=== PATIENT | female | born 1995 | race Hispanic/Latino ===

== ENCOUNTER 2019-07-10 12:09 | Outpatient (CLI) | payer MEDICAID ==
[2019-07-10 12:34] VITALS: BP 110/66
--- NOTE | 2019-07-10 14:46 | Ultrasound Report ---
Limited OB Ultrasound Biophysical profile HISTORY: baby measuring too small. Clinical age reported at 35 weeks and 2 days. TECHNIQUE: Grayscale and color Doppler imaging performed. COMPARISON: None FINDINGS: Limited OB ultrasound: There is a single intrauterine gestation which is cephalic in presentation. He art rate is 154 bpm. JUSTIN is 12. Gestational age not estimated on this exam. Biophysical profile: The fetus received a score of 2 out of 2 for breathing movement, movement, poste rior/tone, and JUSTIN. Total score was 8 out of 8. IMPRESSION: 1. Single viable intrauterine gestation as above. 2. Normal BPP. Signer Name: Ryan Nunes MD Signed: 07/10/2019 2:42 PM Workstation Name: [id number]
== END 2019-07-10 16:19 | disposition home or self-care (01) ==
LOC: TRG 12:09
PROVIDERS: ATTEND Obstetrics & Gynecology
DX: O36.5930 Maternal care for other known or suspected poor fetal growth, third trimester, not applicable or unspecified (principal); Z3A.35 35 weeks gestation of pregnancy; Z87.891 Personal history of nicotine dependence
CPT/HCPCS: 59025; 76815; 76819

== ENCOUNTER 2019-08-12 05:37 | Inpatient (IN) | payer MEDICAID ==
[2019-08-12] MEDS ORDERED: LACTATED RINGERS 1,000 ML ONE ×2 (06:10→07:02)
[2019-08-12] MEDS ORDERED: OXYTOCIN 20 UNIT/1000ML DRIP 40,000 MILLIUNITS/2,000 ML BAG IV ONE (06:17)
[2019-08-12] MEDS ORDERED: ceFAZolin/Water 2 GM/20 ML 2 GM/20 ML SYRINGE IV ONE (06:18)
[2019-08-12] MEDS ORDERED: FAMOTIDINE 20 MG/2 ML INJ IV ONE (06:18)
[2019-08-12] MEDS ORDERED: BICITRA ORAL LIQD 30ML ONE (06:18)
[2019-08-12] MEDS ORDERED: METOCLOPRAMIDE 10 MG/2 ML INJ ONE (06:18)
[2019-08-12] MEDS ORDERED: diphenhydrAMINE 50 MG/ML VIAL IV PRN (06:47)
[2019-08-12] MEDS ORDERED: HYDROmorphone 1 MG/1 ML INJ IV PRN ×2 (06:47)
[2019-08-12] MEDS ORDERED: ONDANSETRON 4 MG/2 ML INJ IV PRN (06:47)
--- NOTE | 2019-08-12 06:49 | Anesthesia Day of Surgery ---
Anesthesia Day of Surgery - Day of Surgery Patient Examined: Yes Patient H&P Reviewed: Yes Patient is NPO: Yes Beta Blockers: No Cardiac Clearance: No Pulmonary Clearance: No Matias's Test: N/A
--- NOTE | 2019-08-12 06:50 | Anesthesia Consultation ---
Anesthesia Consult and Med Hx Date of service: 08/12/19 - Airway Anesthetic Teeth Evaluation: Good ROM Head & Neck: Adequate Mental/Hyoid Distance: Adequate Mallampati Class: Class II Intubation Access Assessment: Probably Good - Pulmonary Exam CTA: Yes - Cardiac Exam Cardiac Exam: RRR - Pre-Operative Health Status ASA Pre-Surgery Classification: ASA2 Proposed Anesthetic Plan: Spinal - Pulmonary Hx Smoking: No Hx Asthma: No Hx Respiratory Symptoms: No SOB: No COPD: No Home Oxygen Therapy: No Hx Pneumonia: No Hx Sleep Apnea: No - Cardiovascular System Hx Hypertension: No Hx Coronary Artery Disease: No Hx Heart Attack/AMI: No Hx Angina: No Hx Percutaneous Transluminal Coronary Angioplasty (PTCA): No Hx Cardia Arrhythmia: No Hx Pacemaker: No Hx Internal Defibrillator: No Hx Valvular Heart Disease: No Hx Heart Murmur: No Hx Peripheral Vascular Disease: No - Central Nervous System Hx Neuromuscular Disorder: No Hx Seizures: No CVA: No Hx Back Pain: No Hx Psychiatric Problems: No - Gastrointestinal Hx Ulcer: No Hx Gastroesophageal Reflux Disease: Yes - Endocrine Hx Renal Disease: No Hx End Stage Renal Disease: No Hx Cirrhosis: No Hx Liver Disease: No Hx Insulin Dependent Diabetes: No Hx Non-Insulin Dependent Diabetes: No Hx Thyroid Disease: No Hx Hypothyroidism: No Hx Hyperthyroidism: No - Hematic Hx Anemia: No Hx Sickle Cell Disease: No - Other Systems Hx Alcohol Use: No Hx Substance Use: No Hx Cancer: No Hx Obesity: No
[2019-08-12 06:58] LABS: Hemoglobin 14.1 gm/dl (10.1-14.3); Mean Corpuscular HGB Conc 34 % (30-34); Mean Corpuscular Volume 92 fl (79-97); Platelet Count 428 K/mm3 (140-440); Red Blood Count 4.55 M/mm3 (3.65-5.03); Red Cell Distribution Width 13.9 % (13.2-15.2)
[2019-08-12] MEDS ORDERED: ONDANSETRON 4 MG/2 ML INJ ONE (07:16)
[2019-08-12] MEDS ORDERED: KETOROLAC 30 MG/1 ML INJ ONE (07:16)
[2019-08-12] MEDS ORDERED: DEXMEDETOMIDINE 200 MCG/2 ML VIAL IV ONE (07:16)
--- NOTE | 2019-08-12 07:47 | History and Physical Report ---
History of Present Illness Date of examination: 08/12/19 Date of admission: 08/12/19 05:37 Chief complaint: Repeat C Section History of present illness: Pt is a 23yo WF EDC 08/12/19; EGA 40 0/7 weeks presents for a Repeat C Section. She received late care at [facility] since 25 weeks and course has been unremarkable except for a previous C Section. records are available and GBS is negative. 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 HAND History: abnormal PAP smear Family/Genetic History: none Social history: no significant social history, single - Obstetrical History Expected Date of Delivery: 08/12/19 Actual Gestation: 40 Week(s) 0 Day(s) : 3 Medications and Allergies Allergies Allergy/AdvReac Type Severity Reaction Status Date / Time No Known Allergies Allergy Verified 08/12/19 06:09 Active Meds: Active Medications Diphenhydramine HCl (Benadryl) 12.5 mg IV Q2H PRN PRN Reason: Itching Hydromorphone HCl (Dilaudid) 0.5 mg IV Q5M PRN PRN Reason: BREAK Stop: 08/12/19 23:59 Hydromorphone HCl (Dilaudid) 0.5 mg IV Q4H PRN PRN Reason: breakthrough pain > 7/10 Ondansetron HCl (Zofran) 4 mg IV Q8H PRN PRN Reason: Nausea And Vomiting Sodium Chloride (Sodium Chloride Flush Syringe 10 Ml) 10 ml IV PRN PRN PRN Reason: LINE FLUSH Review of Systems All systems: negative - Vital Signs Vital signs: Vital Signs Temp Pulse Resp BP Pulse Ox 98.2 F 68 16 112/69 100 08/12/19 06:08 08/12/19 06:08 08/12/19 06:08 08/12/19 06:08 08/12/19 06:08 Temp Pulse Resp BP Pulse Ox 98.2 F 76 16 112/69 98 08/12/19 06:08 08/12/19 07:24 08/12/19 06:08 08/12/19 06:08 08/12/19 07:24 - Physical Exam Breasts: Positive: deferred Cardiovascular: Regular rate Lungs: Positive: Clear to auscultation Abdomen: Positive: normal appearance Genitourinary (Female): Positive: normal external genitalia Vagina: Positive: normal moisture Uterus: Positive: enlarged Extremities: Positive: normal - Obstetrical FHR: category 1 Uterine Contraction Monitor Mode: External Results Result Diagrams: 08/12/19 06:00 Abnormal lab results 08/12/19 Range/Units 06:00 WBC 15.3 H (4.5-11.0) K/mm3 All other labs normal. Assessment and Plan - Patient Problems (1) 40 weeks gestation of Onset Date: 08/12/19 Current Visit: Yes Status: Acute Plan to address problem: A: IUP @ 40 0/7 weeks Previous C Section P: Admit to L&D for Repeat C Section. (2) Previous section Onset Date: 08/12/19 Current Visit: Yes Status: Acute
[2019-08-12] MEDS ORDERED: ePHEDrine SULFATE 50 MG/1 ML INJ ONE (07:48)
[2019-08-12] MEDS ORDERED: LACTATED RINGERS 1,000 ML IV SCH (08:00)
[2019-08-12] MEDS ORDERED: OXYTOCIN 20 UNIT/1000ML DRIP 20 UNITS/1,000 ML BAG IV SCH ×2 (08:00→09:00)
[2019-08-12] MEDS ORDERED: WATER FOR IRRIG STERILE 1,500 ML BOTTLE IR ONE (08:05)
[2019-08-12] MEDS ORDERED: SODIUM CHLORIDE 0.9% IRR 1,500 ML BOTTLE IR ONE (08:05)
[2019-08-12] MEDS ORDERED: FAMOTIDINE 20 MG/2 ML INJ IV NR (08:30)
[2019-08-12] MEDS ORDERED: BICITRA ORAL LIQD 30ML PO NR (08:30)
[2019-08-12] MEDS ORDERED: METOCLOPRAMIDE 10 MG/2 ML INJ IV NR (08:30)
[2019-08-12] MEDS ORDERED: ceFAZolin/Water 2 GM/20 ML 2 GM/20 ML SYRINGE IV NR (08:30)
--- NOTE | 2019-08-12 08:40 | Operative Report ---
Operative Report Operative Report: Date of procedure: 08/12/2019 Pre-operative diagnosis: 1. Intrauterine at 40 0/7 weeks 2. Prev ious C Section Post-operative diagnosis: Same Procedure name(s): Repeat low transverse section Surgeon: Joseph Chase MD Photoengraving Proofer Apprentice: None Anesthesia: Spinal anesthesia by Disha Griffith CRNA EBL: 800 mL's Findings: A 3404 g female Apgars 8 at 1 minute and 9 at 5 minutes. Clear amniotic fluid. Normal uterus with normal tubes and ovaries bilaterally. Procedure: After the patient was prepped and draped in usual sterile fashion, and after satisfactory level of epidural anesthesia was obtained, the skin knife was used to make a transverse skin incision through the previous skin scar. The incision was excised down to layer of the fascia, which was nicked in the midline and extended laterally using the Bovie cautery. The rectus muscles were dissected off the rectus fascia both superiorly and inferiorly. The rectus bellies in the midline, and the peritoneum was entered under direct visualization. The peritoneal incision was extended superiorly and inferiorly. The lower uterine adhesions were taken down using both sharp and blunt dissection. A bladder flap was created and the bladder blade was then placed. The uterus was scored in a curvilinear linear fashion, entered in the midline revealing clear amniotic fluid. The infant's head was delivered onto the surgical field with the aid of a vacuum, and the oropharynx and nasopharynx were bulb suctioned. The rest of the infant's body was delivered, cord was doubly clamped and cut and the infant was handed to the waiting respiratory team. Cord blood was then obtained. The placenta was manually removed from the uterus, and the uterus removed from its normal anatomical position. After gentle uterine lavage, the incision was inspected and found to be without extensions. It was then closed in 2 layers using 0 Vicryl suture in a running interlocking fashion, the second layer imbricating the first. After good hemostasis was achieved, copious amounts or irrigation was performed, and the gutters were suctioned free of blood and blood clots. The Tisseel sealant was sprayed across the uterine incision, and excellent hemostasis was assured. The uterus was then returned to its normal anatomical position, and after excellent hemostasis assured, the peritoneum was re-approximated using 3-0 Vicryl suture in a running interlocking fashion, and then the rectus muscles were re-approximated using 3-0 Vicryl suture in a [id number] configuration. The fascia was then re-approximated using 0 Vicryl suture in running interlocking fashion. The subcutaneous layer was made hemostatic using Bovie cautery, and the skin edges re-approximated using 4-0 Vicryl suture in a sub-cuticular fashion. Patient tolerated the procedure well was transported to recovery in stable condition.
[2019-08-12] MEDS ORDERED: WITCH HAZEL/ GLYCERIN PAD TP PRN (08:41)
[2019-08-12] MEDS ORDERED: NALOXONE 0.4 MG/1 ML INJ IV PRN (08:41)
[2019-08-12] MEDS ORDERED: SIMETHICONE 80 MG CHEW TAB PO PRN (08:41)
[2019-08-12] MEDS ORDERED: HYDROcodone/ACETAMINOPHEN 5-325 MG TAB PO PRN (08:41)
[2019-08-12] MEDS ORDERED: LANOLIN/ZINC/DIMETHICONE (LANSINOH) 7 GM TP PRN (08:41)
[2019-08-12] MEDS ORDERED: KETOROLAC 30 MG/1 ML INJ IV PRN (08:41)
[2019-08-12] MEDS ORDERED: D5W/LACTATED RINGERS 1,000 ML IV SCH ×2 (09:00→20:00)
--- NOTE | 2019-08-12 09:15 | Post Anesthesia Evaluation ---
- Post Anesthesia Evaluation Patient Participated: Yes Airway Patent: Yes Stable Respiratory Function: Yes Nausea/Vomiting: No Temp > 96.8F: Yes Pain Manageable: Yes Adequeate Hydration: Yes Anesthesia Complications: No Block Receding Appropriately: Yes Patient on Ventilator: No
[2019-08-12] MEDS: FERROUS SULFATE 325 MG TAB PO SCH (12:38)
[2019-08-12] MEDS: oxyCODONE /ACETAMINOPHEN 5-325MG TAB PO PRN ×2 (12:38→20:04)
[2019-08-12] MEDS: PRENATAL VIT27-FE FUMARATE-FOLIC ACID VIT TAB PO SCH (12:39)
[2019-08-12] MEDS: IBUPROFEN 800 MG TAB PO PRN ×2 (15:26→23:25)
[2019-08-12] MEDS: ceFAZolin/NS 1 GM/50 ML 1 GM/50 ML BAG IV SCH ×2 (15:27→23:30)
[2019-08-12 19:43] LABS: Hematocrit 25.2 % (30.3-42.9); Hemoglobin 7.8 gm/dl (10.1-14.3)
[2019-08-12] MEDS ORDERED: MAGNESIUM HYDROXIDE (MOM) ORAL LIQD UDC PO PRN (22:00)
[2019-08-13] MEDS: oxyCODONE /ACETAMINOPHEN 5-325MG TAB PO PRN ×4 (05:14→23:35)
--- NOTE | 2019-08-13 09:48 | Progress Note ---
Assessment and Plan - Patient Problems (1) 40 weeks gestation of Onset Date: 08/12/19 Current Visit: Yes Status: Resolved (2) Previous section Onset Date: 08/12/19 Current Visit: Yes Status: Resolved (3) Status post Onset Date: 08/13/19 Current Visit: Yes Status: Resolved Plan to address problem: A: S/P Repeat C Section - POD #1 Doing well Acute blood loss anemia - stable P: Continue RPOC Anticipate discharge in 24-48hrs (4) Acute blood loss anemia Onset Date: 08/13/19 Current Visit: Yes Status: Resolved Subjective - Subjective Date of service: 08/13/19 Principal diagnosis: s/p Repeat C Section - POD #1 Interval history: Pt is feeling well without complaints. Bleeding improved. Patient reports: appetite normal, voiding normally, pain well controlled, ambulating normally, no dizzy ambulation, no flatus, no nauseated [place]: doing well, nursing well Objective - Vital Signs Latest vital signs: Vital Signs Temp Pulse Resp BP BP Pulse Ox 08/13/19 07:58 97.8 F 65 16 110/69 100 08/13/19 05:14 20 08/13/19 05:08 98.7 F 70 20 106/64 98 08/13/19 00:08 98.3 F 70 20 105/64 99 08/12/19 23:25 20 08/12/19 20:24 97.8 F 68 18 105/64 98 08/12/19 20:04 20 08/12/19 16:00 98.6 F 80 18 99/56 08/12/19 10:00 59 L 11 L 123/74 100 Intake and Output 08/12/19 08/13/19 08/13/19 22:59 06:59 14:59 Intake Total 410 360 Output Total 2600 2600 Balance -2190 -2240 Intake: IV 50 ANCEF/NS 1 GM/50 ML 1 gm 50 In 50 ml @ 100 mls/hr IV Q8H [facility] Rx#:[id number] Oral 360 Intake, Free Water 360 Output: Urine 2600 2600 Indwelling Catheter 700 2600 Void 1900 Other: Total, Intake Amount 120 Total, Output Amount 700 800 # Voids Void 1 - Exam Abdomen: Present: normal appearance, soft Uterus: Present: normal, firm, fundal height below umbilicus Extremities: Present: normal Incision: Present: normal, dry, intact, dressed - Labs Labs: Abnormal lab results 08/12/19 Range/Units 19:28 Hgb 7.8 L D (10.1-14.3) gm/dl Hct 25.2 L D (30.3-42.9) % Laboratory Tests 08/12/19 08/12/19 08/12/19 06:00 06:00 06:00 WBC 15.3 H RBC 4.55 Hgb 14.1 Hct 42.0 MCV 92 MCH 31 MCHC 34 RDW 13.9 Plt Count 428 RPR Nonreactive Blood Type O POSITIVE Antibody Screen Negative 08/12/19 19:28 WBC RBC Hgb 7.8 L D Hct 25.2 L D MCV MCH MCHC RDW Plt Count RPR Blood Type Antibody Screen
[2019-08-13] MEDS: IBUPROFEN 800 MG TAB PO PRN ×2 (10:30→16:12)
[2019-08-13] MEDS: FERROUS SULFATE 325 MG TAB PO SCH (10:30)
[2019-08-13] MEDS: PRENATAL VIT27-FE FUMARATE-FOLIC ACID VIT TAB PO SCH (10:30)
[2019-08-13] MEDS ORDERED: TETANUS,DIPH,PERTUSS(ACELL) VACCINE 0.5 ML SYRINGE IM ONE (12:00)
[2019-08-13] MEDS ORDERED: MEASLES, MUMPS & RUBELLA 12,500 UNIT/0.5 ML VACCINE SUB-Q ONE (12:00)
[2019-08-14] MEDS: IBUPROFEN 800 MG TAB PO PRN ×2 (05:20→20:29)
--- NOTE | 2019-08-14 10:09 | Progress Note ---
Assessment and Plan - Patient Problems (1) 40 weeks gestation of Onset Date: 08/12/19 Current Visit: Yes Status: Resolved (2) Previous section Onset Date: 08/12/19 Current Visit: Yes Status: Resolved (3) Status post Onset Date: 08/13/19 Current Visit: Yes Status: Resolved Plan to address problem: A: S/P Repeat C Section - POD #2 Doing well Acute blood loss anemia - stable P: May go home tomorrow. (4) Acute blood loss anemia Onset Date: 08/13/19 Current Visit: Yes Status: Resolved Subjective - Subjective Date of service: 08/14/19 Principal diagnosis: s/p Repeat C Section - POD #2 Interval history: Pt is feeling well without complaints. She is tolerating a reg diet without nausea or vomiting, ambulating and voiding without difficulty. Patient reports: appetite normal, voiding normally, pain well controlled, ambulating normally, no dizzy ambulation, no flatus, no nauseated : doing well, nursing well Objective - Vital Signs Latest vital signs: Vital Signs Temp Pulse Resp BP BP Pulse Ox 08/14/19 05:20 18 08/14/19 00:00 98 F 61 18 116/60 08/13/19 23:35 20 08/13/19 16:28 97.9 F 68 16 105/67 97 Intake and Output 08/13/19 08/14/19 08/14/19 22:59 06:59 14:59 Intake Total 240 300 Balance 240 300 Intake: Oral 240 Intake, Free Water 300 Other: Total, Intake Amount 240 # Voids Void 1 1 - Exam Abdomen: Present: normal appearance, soft Uterus: Present: normal, firm, fundal height below umbilicus Extremities: Present: normal Incision: Present: normal, dry, intact
[2019-08-14] MEDS: FERROUS SULFATE 325 MG TAB PO SCH ×2 (10:10→10:12)
[2019-08-14] MEDS: PRENATAL VIT27-FE FUMARATE-FOLIC ACID VIT TAB PO SCH (10:12)
[2019-08-14] MEDS ORDERED: NEOMY 3.5 MG/BACIT 400 UNITS/POLY B 5000 UNITS OINT 15 GM TP ONE (11:01)
[2019-08-14] MEDS: oxyCODONE /ACETAMINOPHEN 5-325MG TAB PO PRN (14:25)
[2019-08-14] MEDS ORDERED: NEOMY 3.5 MG/BACIT 400 UNITS/POLY B 5000 UNITS/GM OINT PACKET TP SCH (20:00)
[2019-08-14] MEDS ORDERED: NEOMY 3.5 MG/BACIT 400 UNITS/POLY B 5000 UNITS OINT 15 GM TP SCH (22:30)
--- NOTE | 2019-08-15 09:49 | Discharge Summary ---
Providers - Providers Date of Admission: 08/12/19 05:37 Date of discharge: 08/15/19 Attending physician: ROSIO PETERSEN Primary care physician: ROSIO PETERSEN Hospitalization Reason for admission: section, IUP at term Delivery: Procedure: section, repeat low transverse Episiotomy: none Laceration: none Incision: normal, dry, intact Other procedures: none complications: none Discharge diagnosis: IUP at term delivered [place] baby: female Hospital course: Pt is a 23yo WF EDC 08/12/19; EGA 40 0/7 weeks who presented for a Repeat C Section. She received late care at [facility] since 25 weeks and course has been unremarkable except for a previous C Secti on. She underwent an uncomplicated Repeat C Section and tolerated the procedure well. By POD #2 she was tolerating a reg diet without nausea or vomiting, ambulating and voiding without difficulty. She was therefore discharged to home on POD #3 in stable condition. Condition at discharge: Good Disposition: DC-01 TO HOME OR SELFCARE - Discharge Diagnoses (1) 40 weeks gestation of Status: Resolved (2) Previous section Status: Resolved (3) Status post Status: Resolved (4) Acute blood loss anemia Status: Resolved Plan - Discharge Medications Prescriptions: Ferrous Sulfate [Feosol 325 MG tab] 325 mg PO BID #60 tablet Ibuprofen [Motrin 800 MG tab] 800 mg PO Q6H PRN #30 tablet PRN Reason: Pain, Mild (1-3) HYDROcodone/APAP 5-325 [[place] 5-325 mg TAB] 1 each PO Q6HR PRN #30 tablet PRN Reason: Pain, Moderate (4-6) Vit-Fe Fumar-FA [ Vitamin] 1 each PO QDAY #30 tablet - Provider Discharge Summary Activity: routine, no sex for 6 weeks, no heavy lifting 4 weeks, no strenuous exercise Diet: routine Instructions: routine Additional instructions: [] Smoking cessation referral if applicable(refer to patient education folder for contact #) [] Refer to [facility] Booklet Call your doctor immediately for: * Fever > 100.5 * Heavy vaginal bleeding ( >1 pad per hour) * Severe persistent headache * Shortness of breath * Reddened, hot, painful area to leg or breast * Drainage or odor from incision. * Keep incision clean and dry at all times and follow doctor's instructions regarding bathing/showering - Follow up plan Follow up: ROSIO PETERSEN MD [Primary Care Provider] - 14 Days RACHEL HAMMONDS NP [Referring] - 14 Days
[2019-08-15] MEDS: FERROUS SULFATE 325 MG TAB PO SCH (10:34)
[2019-08-15] MEDS: IBUPROFEN 800 MG TAB PO PRN (10:34)
[2019-08-15] MEDS: PRENATAL VIT27-FE FUMARATE-FOLIC ACID VIT TAB PO SCH (10:34)
[2019-08-15 13:10] VITALS: BP 115/81
== END 2019-08-15 11:50 | disposition home or self-care (01) | DRG 765 ==
LOC: APU 05:37 → OB 12:08
PROVIDERS: ADMIT Obstetrics & Gynecology; ATTEND Obstetrics & Gynecology
PROC: 10D00Z1 Extraction of Products of Conception, Low, Open Approach (ICD-10-PCS; principal; 2019-08-12)
DX: O34.211 Maternal care for low transverse scar from previous cesarean delivery (principal); D62 Acute posthemorrhagic anemia; O90.81 Anemia of the puerperium; O99.62 Diseases of the digestive system complicating childbirth; K21.9 Gastro-esophageal reflux disease without esophagitis; Z3A.40 40 weeks gestation of pregnancy; Z37.0 Single live birth
CPT/HCPCS: 36415; 85014; 85018; 85027; 86592; 86850; 86900; 86901; G0378; A6250; C9250; J0690; J1885; J2405; J2590; J2765; J3490; J7120; J7121